=== PATIENT | female | born 1965 | race Caucasian/White ===

== ENCOUNTER 2016-08-19 14:33 | Emergency (ER) | payer OTHER ==
[~2016-08-19] VITALS: Ht 175.3 cm; Wt 69.5 kg
[2016-08-19 14:41] VITALS: BP 98/55; PULSE 51; RESP 17; O2SAT 98
--- NOTE | 2016-08-19 14:59 | ED.REPORT ---
HPI-Chest Pain 40 and Over Date of Service Aug 19, 2016 ED Provider: Dhruv Clement MD A 51 year old female with a history of chronic anemia, spinal stenosis, L4 laminectomy, ductal carcinoma, and fibromyalgia, presents to the ED via EMS from complaining of left chest pain onset around 1315 today. The patient was sitting in their bed reading and felt a gripping, squeezing pain in her chest. The pain radiates to the patient's legs. The pain was exacerbated by breathing , and made it hard for the patient to put their shoes on or move around. The patient told her daughter to drive her to the where she had difficulty even standing at the counter or moving into the bed there. At the pain was 10/10 but is now 8/10. At she was given baby aspirin. Now there is no gripping pain , but the pain is still exacerbated by deep breathes. She has not experienced pain like this before. Associated symptoms include SOB. She denies any leg swelling, fever in the last 2-3 days, nausea, diaphoresis, chills or recent coughing fits. The patient had the flu last week and then got bronchitis, onset 4 days ago. She did have diaphoresis and chills accompanying this illness, these symptoms last experienced 3 days ago. She was given Zpack and Prednisone. The patient reports that the chest pain onset about 15 minutes after her last does of prednisone, and she has concern that it may be a negative reaction to the drug, as she has never taken prednisone before in the past. She reports that her sickness has been feeling a lot better lately. The patient has baseline blood pressure around 90 and a baseline heart rate in the 50's. She denies having any trouble with exertion over the past few weeks, but does report that she quit smoking last week, having smoked 1 pack per day before that. She denies any history of heart problems, but does report that her Dad had coronary diseases, including CHF, that started while he was in his early 50's. Her father had a pace maker inserted. The patient denies any history of blood clots in her legs or lungs. The patient has had radiation therapy over her left breast. She may have had a stress test a few years ago, but she is unsure about this. The patient reports an allergy to morphine, describing that it makes her vomit. . Nursing Notes Stated Complaint: CHEST PAIN Chief Complaint: Chest Pain Nursing Notes Reviewed: Yes ([place] not reconciled) Allergies: Coded Allergies: codeine (Verified Allergy, Mild, nauseated, 08/19/16) morphine (Verified Allergy, Mild, nausea, 08/19/16) Scheduled Amoxicillin (Amoxicillin) 500 Mg Capsule 500 MG PO TID Lactobacillus Acidophilus (Probiotic) 1 Each Capsule 1 EACH PO DAILY Once daily, and continue for at least 2 weeks after finishing antibiotics Scheduled PRN Hydrocodone-Acetaminophen 5-325 mg (Hydrocodone-Acetaminophen 5-325 mg) 1 Each Tablet 1-2 TABLET PO Q4H PRN PRN For Pain General Time Seen by MD: 14:57 Chief Complaint Chest pain Hx Obtained From: Patient, Daughter Sudden in Onset?: Yes Onset Occurred: 1 - 4 hours ago (1315 today) Symptom Duration: Since onset Location: : Chest left Severity: Current: Pain level 8 out of 10 Severity: Maximum: Pain level 10 out of 10 Recent Healthcare: Recent doctor visit Similar Sx Previous: No Past Medical History Past Medical History Notes: She reports her baseline vitals include a blood pressure around 90, heart rate in the 50s Recent respiratory infection, lead patient to "quit smoking", seen at urgent care on Thursday-treated with Zithromax and prednisone, reports much improved with no fever or chills since Thursday Past Medical History History of ductal carcinoma in situ the left breast in the past History of chronic anemia History of fibromyalgia History of spinal stenosis Denies: Coronary artery disease, Diabetes mellitus, Hyperlipidemia, Hypertension Past Surgical History L4 laminectomy 1989 1998 Breast lumpectomies slight history of laparoscopy Family History Father with history of heart disease and subsequent congestive heart failure pacemaker, she thinks that his disease developed around early 50s Smoking History Current Every Day Smoker (trying to quit) Social History Alcohol Use: Denies alcohol use Drug Use: Denies drug use Review of Systems Constitutional: Denies: Chills, Fever Respiratory: Reports: Shortness of breath, Denies: Non-productive cough Cardiovascular: Reports: Chest pain (left) GI: Denies: Nausea Musculoskeletal: Denies: Extremity swelling (Denies any leg swelling ) Skin: Denies Diaphoresis Complete sys rev & neg: except as marked. Physical Exam Initial Vital Signs Vital Signs (First) Date Time Temp Pulse Resp B/P Pulse Ox O2 Delivery O2 Flow Rate FiO2 08/19/16 14:41 36.7 51 17 98/55 98 Room Air Initial VS: Reviewed, Vital signs normal (Bp 98) General/Constitutional: Awake, Alert Patient is uncomftorable but is otherwise normal. Respiratory / Chest: Atraumatic, Breath sounds NL, Breath sounds = bilat, No respiratory distress, No rales, No rhonchi, No wheezing Cardiovascular: Heart rate NL, Regular rhythm, Heart sounds NL, No gallop, No murmurs, No rubs Abdomen: Atraumatic, No guarding, No rebound Neck: Atraumatic, No swelling Lower Extremity / Pelvis / MS: No swelling, No edema Skin: Atraumatic, Color NL, Warm, Dry Neurologic: Oriented X3, Speech NL Head / Eyes: Atraumatic, Normocephalic, PERRL, EOMI ENT: Atraumatic, Airway patent Upper Extremity / MS: No swelling, No edema Wrist / Hand: No swelling, No edema Interpretation & Diagnostics Lab Results Interpretation Result Diagram: 08/19/16 1521 08/19/16 1521 Test 08/19/16 15:21 08/19/16 16:25 08/19/16 17:37 White Blood Count 7.7th/mm3 (3.8-10.1) Red Blood Count 3.99mil/mm3 (3.90-5.20) Hemoglobin 12.4g/dL (12.0-15.6) Hematocrit 37.5% (35.0-46.0) Mean Corpuscular Volume 94.0fL (81-100) Mean Corpuscular Hemoglobin 31.1pg (27.0-35.0) Mean Corpuscular Hemoglobin Concent 33.1% (32.0-37.0) Red Cell Distribution Width 12.5% (12.3-15.4) Platelet Count 148bil/L (150-400) Neutrophils (%) (Auto) 83.4% (40-74) Lymphocytes (%) (Auto) 12.0% (14-46) Monocytes (%) (Auto) 4.0% (4-12) Eosinophils (%) (Auto) 0.4% (0-5) Basophils (%) (Auto) 0.1% (0-3) D-Dimer < 0.5mg/L (<0.50) Sodium Level 138mEq/L (134-144) Potassium Level 3.8mEq/L (3.5-5.2) Chloride Level 98mEq/L (97-108) Carbon Dioxide Level 24mmol/L (18-29) Blood Urea Nitrogen 14mg/dL (6-24) Creatinine 0.72mg/dL (0.57-1.00) Estimat Glomerular Filtration Rate 122mL/min (>59) Glucose Level 115mg/dL (60-99) Calcium Level 9.4mg/dL (8.5-10.1) Magnesium Level 2.2mg/dL (1.6-2.6) Total Bilirubin 0.4mg/dL (0.0-1.2) Aspartate Amino Transf (AST/SGOT) 53U/L (0-50) Alanine Aminotransferase (ALT/SGPT) 158U/L (0-32) Alkaline Phosphatase 205U/L (25-150) Total Protein 6.9g/dL (6.4-8.4) Albumin 3.7g/dL (3.4-5.0) Lipase 16U/L (13-60) Hold Cox Top Tube Received (Received) Hold Urine Received (Received) Troponin T < 0.010ug/L (0.0-0.011) Hepatitis C Comment . Lab Results Interpretation: CBC normal CMP normal except for mildly elevated liver function tests, new since 2003, lipase negative D-dimer negative next troponin #1 negative Troponin #2 negative Hepatology series pending Patient on azithromycin, cultures are not indicated ECG Interpretation ECG Interpretation: Sinus bradycardia with no ischemic changes, no interval changes-compared with prehospital EKG and urgent care EKG Time: 15:18 Interpreted by: ED physician X-Ray Chest Interpretation Chest Xray Interpretation: IMPRESSION: Left lower lobe pneumonia. Dictated by: Ne Allen M.D. on 08/19/2016 at 16:57 Approved by: Ne Allen M.D. on 08/19/2016 at 16:58 View: Portable, 1 view Interpretation / Wet Read by: Interpret - Radiologist Re-Eval/Medical Decision Med Decision/Clinical Course This is a 51-year-old female smoker reports she just stopped a few days ago, now presents complaining of chest pain and worried she might be having a heart attack. She reports all last week she was suffering from a respiratory infection, she was seen at urgent care and started on azithromycin, an inhaler, and a prednisone taper and she does feel that she started to get better, but then developed severe left-sided pleuritic chest pain today-Ashley called her family and brought her to the emergency department. Her biggest concern is that she is having an AK she reports that she started the antibiotics she says she felt that she has done much better from a respiratory infection standpoint. She did report she had fevers last week but thinks that they have resolved. She denies a productive cough. She appears uncomfortable initial exam. Her lungs are clear and she is not to get records sent. She is not diaphoretic. She is not tachycardic. Her age makes her protocol positive, but a d-dimer is negative for PE. X-ray reveals a left lower lobe pneumonia at the site where she is having most of the discomfort. Blood work is normal including serial troponins. ( Technically the blood work does also reveal mild elevation in liver function tests, patient denies any medication exposures that would help explain this, and a hepatitis series is pending, lipase is normal and there are no focal findings of pancreatitis to suggest the cause of today's symptoms) Overall patient is a left-sided pneumonia that is likely the cause of her pleuritic discomfort. She received a dose of ceftriaxone, there is increased strep pneumo resistance to azith[place], and she is finishing azithromycin briefly added resistance and coverage amoxicillin is being added. She received pain control with Toradol, and being discharged some hydrocodone. Routine precautions reviewed. Patient is normal vitals, clinically well- appearing, reassuring labs-and has no feature indicated need for hospitalization. She is discharged in much improved condition. Source of Hx: Old records Time of Eval: 14:57 Re-Evaluation/Progress Note: Rechecked patient and explained plan for treatment. Differential Diagnosis: Positive: Chest pain, acute, Pneumonia, Negative: Acute coronary syndrome, Acute myocardial infarct, Congestive heart failure, Dysrhythmia, Esophageal rupture, Gun shot wound chest, Musculoskeletal pain, Myocardial infarction, Peptic ulcer disease, Pericarditis , Pneumomediastinum, Pneumothorax, Pulmonary edema, Pulmonary embolism, Rib fracture, Stab wound chest Counseled Regarding: Diagnosis, Lab results, When/why to return to ED Discharge & Departure Primary Impression: Pneumonia Pneumonia type: due to unspecified organism Laterality: left Lung location : lower lobe of lung Qualified Code: J18.9 - Pneumonia, unspecified organism Additional Impressions: Pleuritic chest pain Elevated liver function tests Disposition: Home Discharge Condition All VS Reviewed: Yes Condition: Improved Additional Instructions: 1. Your heart tests were normal - no findings of a heart attack. Her EKG and blood work were both normal. 2. Chest x-ray does reveal a left sided pneumonia where you are having the pain , is likely the source of your discomfort. 3. Go ahead in finish your azithromycin. We are adding the antibiotic amoxicillin 500 mg 2 times a day for 7 more days. 4. Go ahead and finish the prednisone course as currently prescribed. 5. Continue the albuterol inhaler as needed up to every 4 hours. 6. I recommended taking ibuprofen 400 800 mg 3 times a day for the pain if needed. 7. If needed for more severe pain take hydrocodone/APAP 5/325 one to 2 tabs up to every 4 hours. Note: This medication does contain a narcotic and causes drowsiness. No driving for at least 4-6 hours after taking. Use sparingly. 8. An incidental finding was that your liver function tests were marginally abnormal today. Significance and cause of this is unclear. A hepatitis panel has been sent-this often takes 1-2 weeks for results, follow up with her primary care physician for results. 9. Continue to stay away from smoking. 10. Return if new or worsening symptoms occur. 11. Follow up with Dr. Caro in 1-2 weeks Referrals: Catherine Caro MD (PCP) [place] Attestation Portions of this note were transcribed by Antoine Strong. I, Dr. Clement personally performed the history, physical exam and medical decision-making; I reviewed and confirmed the accuracy of the information in the transcribed note. Signed by: Oswaldo Parson, 08/19/2016 1902. copies to: Catherine Caro MD, Matthew F MD Aug 19, 2016 14:59 Antoine Strong Aug 19, 2016 15:10
[2016-08-19] MEDS ORDERED: HYDROmorphone 0.5 mg/0.5 mL iSecure Syringe IVPUSH PRN (15:15)
[2016-08-19] MEDS ORDERED: 0.9% Sodium Chloride 1,000 ML IV ONE (15:15)
[2016-08-19] MEDS ORDERED: Ondansetron 2 mg/mL 2 mL Inj IVPUSH ONE (15:15)
[2016-08-19 15:33] VITALS: BP 97/68; PULSE 52; RESP 14; O2SAT 96
[2016-08-19 15:46] LABS: BASOPHILS % (AUTO) 0.1 % (0-3); EOSINOPHILS % (AUTO) 0.4 % (0-5); Mean Corpuscular Hemoglobin 31.1 pg (27.0-35.0); NEUTROPHILS % (AUTO) 83.4 % (40-74); Platelet Count 148 bil/L (150-400)
[2016-08-19 16:10] VITALS: BP 101/53; PULSE 50; RESP 16; O2SAT 97
[2016-08-19 16:15] LABS: TROPONIN T < 0.010 ug/L (0.0-0.011)
[2016-08-19 16:20] LABS: Magnesium 2.2 mg/dL (1.6-2.6)
--- NOTE | 2016-08-19 17:00 | DRSVH ---
PROCEDURE: X-RAY CHEST ONE VIEW, PORTABLE ([id number]) INDICATIONS: CHEST PAIN TECHNIQUE: One view of the chest was acquired. COMPARISON: [facility], CR, XR CHEST 2VW, 08/15/2016, 8:34. [facility], CR , CHEST 1VW (PORTABLE), 12/29/2012, 19:11. [facility], CR, CHEST 1VW (PORTABLE), 9, 13:40. FINDINGS: Surgical changes and devices: Multiple surgical clips in the left hemithorax. Lungs and pleura: Left basilar infiltrate suspicious for pneumonia. No pleural effusions or pneumoth orax. Mediastinum: Mediastinal contours appear normal. Heart size is normal. Bones and chest wall: No suspicious bony lesions. Overlying soft tissues appear unremarkable. IMPRESSION: Left lower lobe pneumonia. Dictated by: Ne Allen M.D. on 08/19/2016 at 16:57 Approved by: Ne Allen M.D. on 08/19/2016 at 16:58
[2016-08-19] MEDS ORDERED: cefTRIAXone Inj 2,000 MG in Dextrose 5% Minibag Plus 50 ML IV ONE (17:10)
[2016-08-19 18:17] VITALS: BP 90/51; PULSE 51; RESP 11; O2SAT 96
[2016-08-19] MEDS ORDERED: LACT1CAP65 PO (18:42)
[2016-08-19] MEDS ORDERED: AMOX500C2 PO (18:42)
[2016-08-19] MEDS ORDERED: HYDR-4003 PO (18:42)
[2016-08-19 19:03] VITALS: BP 87/44; PULSE 47; RESP 14; O2SAT 98
[2016-08-20 04:07] LABS: Hepatitis A Antibody IgM Negative (Negative); Hepatitis B Core Antibody IgM Negative (Negative)
== END 2016-08-19 19:04 | disposition home or self-care (01) ==
LOC: SED 14:33 → EDBD 14:33 → SED 19:04
DX: J18.9 Pneumonia, unspecified organism (principal); R94.5 Abnormal results of liver function studies; F17.200 Nicotine dependence, unspecified, uncomplicated; Z88.5 Allergy status to narcotic agent
CPT/HCPCS: 36415; 71010; 80053; 83690; 83735; 84484; 85025; 85379; 86705; 86709; 87340; 87341; 93005; 96361; 96365; 96375; 99285; G0472; J0696; J1170; J1885; J2405; J7030

== ENCOUNTER 2016-08-28 17:10 | Emergency (ER) | payer OTHER ==
[~2016-08-28 17:10] MED LIST: AMOX500C2 PO; HYDR-4003 PO; LACT1CAP65 PO
[2016-08-28 17:33] VITALS: BP 98/68; PULSE 88; RESP 14; O2SAT 94
[2016-08-28] MEDS ORDERED: KLO5T PO (17:39)
[2016-08-28] MEDS ORDERED: FLUO10CA20 PO (17:40)
--- NOTE | 2016-08-28 18:35 | ED.REPORT ---
HPI-General Illness Date of Service Aug 28, 2016 ED Provider: Dr. Chucky Escalante 51 year old female presents to the ER due to weakness, SOB and headache. Pt was seen approximately 1 week ago with multiple vague complaints and concern for SD. She had a chest x-ray and was diagnosed with LLLPNA. Serial troponin's were negative and negative d-dimer. She was given a dose of ceftriaxone and tx with a course of oral amoxicillin. Also prescribed hydrocodone for pain. Prior to this visit she was seen by her PCP and was prescribed a Zpak and prednisone for bronchitis. Her feelings of chest pain started on day 6 of the prednisone. Pt finished her most recent course of antibiotics 2 days ago. She states "I feel like there is something wrong and I am getting worse when I should be getting better" although her cough has resolved. She has been using an inhaler with improvement. Additional symptoms include dizziness, lightheadedness and mild CP. She also noticed a small wound to the R calf yesterday morning. Pt denies fever, wheezing, vomiting, diarrhea, numbness, tingling, edema, dysuria and abd pain. Nursing Notes Stated Complaint: PNEUMONIA POSSIBLE MRSA Chief Complaint: General Complaint Nursing Notes Reviewed: Yes Allergies: Coded Allergies: codeine (Verified Allergy, Mild, nauseated, 08/28/16) morphine (Verified Allergy, Mild, nausea, 08/28/16) Scheduled Amoxicillin (Amoxicillin) 500 Mg Capsule 500 MG PO TID Fluoxetine (Fluoxetine) 10 Mg Capsule 10 MG PO DAILY Lactobacillus Acidophilus (Probiotic) 1 Each Capsule 1 EACH PO DAILY Once daily, and continue for at least 2 weeks after finishing antibiotics Scheduled PRN Clonazepam (Clonazepam) 0.5 Mg Tablet 0.5 MG PO TID PRN PRN For Anxiety Hydrocodone-Acetaminophen 5-325 mg (Hydrocodone-Acetaminophen 5-325 mg) 1 Each Tablet 1-2 TABLET PO Q4H PRN PRN For Pain General Time Seen by MD: 18:34 Chief Complaint Breathing problem Hx Obtained From: Patient Arrived By: Walk-in Sudden in Onset?: No Onset Occurred: More than a week ago... Symptom Duration: Waxes and wanes Location: : Chest Quality: Painful Severity: Current: Mild Associated with: Reports: Chest pain, Cough, Dizziness, Headache, Shortness of breath, Denies: Fever, Vomiting Recent Healthcare: Recent doctor visit Past Medical History Past Medical History Notes: She reports her baseline vitals include a blood pressure around 90, heart rate in the 50s Past Medical History History of ductal carcinoma in situ the left breast in the past History of chronic anemia History of fibromyalgia History of spinal stenosis History of mumps Denies: Asthma Past Surgical History L4 laminectomy 1989 1998 Breast lumpectomies slight history of laparoscopy Reports: Cholecystectomy, Hysterectomy Family History Father with history of heart disease and subsequent congestive heart failure pacemaker, she thinks that his disease developed around early 50s Smoking History Current Every Day Smoker Social History Alcohol Use: Denies alcohol use Drug Use: Denies drug use Ambulatory Status Independent Review of Systems Full Review of Systems Constitutional: Reports: Weakness - generalized, Denies: Fever Respiratory: Reports: Non-productive cough, Shortness of breath, Denies: Wheezing Cardiovascular: Reports: Chest pain, Denies: Edema GI: Denies: Abdominal pain, Diarrhea, Nausea, Vomiting Female: Denies: Dysuria Neurologic: Reports: Dizziness, Headache, Lightheaded, Denies: Numbness Complete sys rev & neg: except as marked. Physical Exam Vital Signs Vital Signs Date Time Temp Pulse Resp B/P Pulse Ox O2 Delivery O2 Flow Rate FiO2 08/28/16 22:08 37.0 72 14 118/70 98 Room Air 08/28/16 17:33 36.8 88 14 98/68 94 Initial VS: Reviewed Neck: Full range of motion Back: No CVA tenderness (No percussive flank tenderness) Extremities: Vascular intact, Neuro intact, No swelling (at calves), No tenderness (at calves) Neurologic: Alert, Oriented, Nonfocal Psychiatric: Mood/affect normal, Behavior normal, Normal thought content General/Constitutional: Awake, Alert Distress / Hydration: Positive: Dehydration mild Head / Eyes: Atraumatic, Normocephalic, PERRL ENT: Airway patent Mouth: Positive: Mucous membranes dry Respiratory / Chest: Breath sounds NL, Breath sounds = bilat, No respiratory distress, No rales, No rhonchi, No wheezing Mastectomy scar on left Cardiovascular: Heart rate NL, Regular rhythm, Heart sounds NL, No gallop, No murmurs, No rubs, Cap refill not delayed, Peripheral circulation NL Abdomen: Soft, Non-tender (Tolerates firm palpation in all 4 quadrants), No distention Skin: No rash, Warm, Dry 1 cm superficial pustule about her R calf. No evidence of abscess or cellulitis. Interpretation & Diagnostics Lab Results Interpretation Result Diagram: 08/28/16200908/28/162009 Test 08/28/16 20:10 White Blood Count 4.8th/mm3 (3.8-10.1) Red Blood Count 3.99mil/mm3 (3.90-5.20) Hemoglobin 12.5g/dL (12.0-15.6) Hematocrit 37.4% (35.0-46.0) Mean Corpuscular Volume 93.7fL (81-100) Mean Corpuscular Hemoglobin 31.3pg (27.0-35.0) Mean Corpuscular Hemoglobin Concent 33.4% (32.0-37.0) Red Cell Distribution Width 12.6% (12.3-15.4) Platelet Count 103bil/L (150-400) Neutrophils (%) (Auto) 41.5% (40-74) Lymphocytes (%) (Auto) 49.2% (14-46) Monocytes (%) (Auto) 5.2% (4-12) Eosinophils (%) (Auto) 3.5% (0-5) Basophils (%) (Auto) 0.6% (0-3) Sodium Level 141mEq/L (134-144) Potassium Level 3.8mEq/L (3.5-5.2) Chloride Level 102mEq/L (97-108) Carbon Dioxide Level 25mmol/L (18-29) Blood Urea Nitrogen 17mg/dL (6-24) Creatinine 0.83mg/dL (0.57-1.00) Estimat Glomerular Filtration Rate 103mL/min (>59) Glucose Level 75mg/dL (60-99) Calcium Level 9.1mg/dL (8.5-10.1) Total Bilirubin 0.3mg/dL (0.0-1.2) Aspartate Amino Transf (AST/SGOT) 20U/L (0-50) Alanine Aminotransferase (ALT/SGPT) 33U/L (0-32) Alkaline Phosphatase 89U/L (25-150) Total Protein 6.4g/dL (6.4-8.4) Albumin 3.7g/dL (3.4-5.0) Lipase 24U/L (13-60) General Lab Results Interp 1: Labs reviewed X-Ray Chest Interpretation Chest Xray Interpretation: IMPRESSION: 1. No acute cardiopulmonary disease. Dictated by: Andrei Lima M.D. on 08/28/2016 at 19:48 View: Portable, 1 view Interpretation / Wet Read by: Interpret - Radiologist Re-Eval/Medical Decision Med Decision/Clinical Course The patient is a 51-year-old female who has recently been treated with multiple courses of antibiotics for community-acquired pneumonia who presents to the emergency department with multiple vague complaints stating that she just generally does not feel well and is concerned that maybe her pneumonia is returning. Here in the ER she is afebrile with a HR 88, not tachypneic BP 98/68 which is baseline, satting in mid 90's on RA. The patient is well-appearing, nontoxic, comfortable and in no apparent distress. Examination as above. She was treated with the below medications: 1L fluids Zofran CXR: Obtained, reviewed and interpreted by myself shows no evidence of infiltrates, effusions or pneumothorax. Cardiac and mediastinal silhouette normal. No bony or soft tissue abnormalities. At this time, the patient remains comfortable, hemodynamically stable, afebrile without any findings of bacterial pneumonia, meningitis, soft tissue infection, electrolyte abnormality or other immediately concerning presentation. She has been extensively worked up during her previous ER visit and I reviewed the studies which included serial negative troponins, negative d-dimer, negative hepatitis panel among others. Pt is tolerating PO and serial examinations remained completely benign. Patient states that she feels quite reassured the workup and would like to go home. I feel that this is appropriate. Prior to discharge follow-up and return precautions were reviewed in detail with the patient who verbalized understanding and agreement with the plan. The patient was discharged in stable condition. Time of Eval: 22:00 Re-Evaluation/Progress Note: Updated pt of labs and imaging results. Discussed plan for discharge and follow up. All questions addressed. Counseled Regarding: Diagnosis, Lab results, Need for follow-up, When/why to return to ED Discharge & Departure Primary Impression: Fatigue Fatigue type: unspecified Qualified Code: R53.83 - Other fatigue Additional Impression: History of pneumonia Disposition: Home Discharge Condition All VS Reviewed: Yes Condition: Improved Thank you for seeking care at the emergency room. Our primary goal today in the ED was to evaluate you for any life-threatening conditions. Your evaluation was reassuring. You should follow-up with your primary doctor in the next week. You should return to the ED immediately if you develop worsening symptoms, fevers, vomiting, cough, shortness of breath, chest pain, lightheadedness, weakness or any other concerning signs or symptoms. Thank you for letting us partake in your care today. Referrals: Catherine Caro MD (PCP) Arron Mccord Attestation Portions of this note were transcribed by Tara Carpenter. I, (Dr. Chucky Escalante ) personally performed the history, physical exam and medical decision-making; I reviewed and confirmed the accuracy of the information in the transcribed note. Signed by: Tara Chacon, 08/28/2016, 2214 copies to: Arron Mccord; Catherine Caro MD, Beck O MD Aug 28, 2016 18:35 Tara Carpenter Aug 28, 2016 19:48 ) personally performed the history, physical exam and medical decision-making; I reviewed and confirmed the accuracy of the information in the transcribed note. Signed by: Tara Chacon, 08/28/2016, 2214 copies to: Arron Mccord; Catherine Caro MD, Beck O MD Aug 28, 2016 18:35 Tara Carpenter Aug 28, 2016 19:48
--- NOTE | 2016-08-28 19:50 | DRSVH ---
PROCEDURE: X-RAY CHEST ONE VIEW, PORTABLE ([id number]) INDICATIONS: SOB TECHNIQUE: One view of the chest was acquired. COMPARISON: [facility], CR, XR CHEST 1VW (PORTABLE), 08/19/2016, 15:27. FINDINGS: Surgical changes and devices: There is surgical clips are demonstrated projecting over the left hemit horax. Lungs and pleura: No pleural effusions or pneumothorax. Lungs are clear. Mediastinum: Mediastinal contours appear normal. Heart size is normal. Bones and chest wall: No suspicious bony lesions. Overlying soft tissues appear unremarkable. IMPRESSION: 1. No acute cardiopulmonary disease. Dictated by: Andrei Lima M.D. on 08/28/2016 at 19:48 Approved by: Andrei Lima M.D. on 08/28/2016 at 19:48
[2016-08-28] MEDS ORDERED: 0.9% Sodium Chloride 1,000 ML IV ONE (19:57)
[2016-08-28] MEDS ORDERED: Ondansetron 2 mg/mL 2 mL Inj IVPUSH ONE (20:00)
[2016-08-28 20:20] LABS: BASOPHILS % (AUTO) 0.6 % (0-3); EOSINOPHILS % (AUTO) 3.5 % (0-5); MONOCYTES % (AUTO) 5.2 % (4-12); Mean Corpuscular Hemoglobin 31.3 pg (27.0-35.0); Mean Corpuscular Volume 93.7 fL (81-100); NEUTROPHILS % (AUTO) 41.5 % (40-74); Platelet Count 103 bil/L (150-400)
[2016-08-28 22:08] VITALS: BP 118/70; PULSE 72; RESP 14; O2SAT 98
== END 2016-08-28 22:10 ==
LOC: SED 17:10
DX: R53.83 Other fatigue (principal); R06.02 Shortness of breath; R51 Headache; R07.9 Chest pain, unspecified; F17.200 Nicotine dependence, unspecified, uncomplicated; Z87.01 Personal history of pneumonia (recurrent); Z88.5 Allergy status to narcotic agent
CPT/HCPCS: 36415; 71010; 80053; 83690; 85025; 96361; 96374; 99284; J2405; J7030